=== PATIENT | female | born 1940 | race African-American/Black ===

== ENCOUNTER 2021-07-06 12:23 | Outpatient (CLI) | payer MEDICARE | END 2021-07-06 12:24 | disposition home or self-care (01) | LOC: CSHMAMMO 12:23 | PROVIDERS: ATTEND Internal Medicine | DX: Z12.31 Encounter for screening mammogram for malignant neoplasm of breast (principal); Z98.890 Other specified postprocedural states; Z85.3 Personal history of malignant neoplasm of breast | CPT/HCPCS: 77066; G0279 ==

== ENCOUNTER 2021-07-27 10:27 | Observation (INO) | payer MEDICARE ==
[2021-07-27 12:43] LABS: #Eosinphils 0.1 10x3/uL (0.0-0.5); #Monocytes 0.3 10x3/uL (0.0-1.1); #Neutrophils 2.2 10x3/uL (1.5-8.4); %Basophils 0.9 % (0.0-2.0); %Eosinophils 2.4 % (0.0-6.0); %Lymphocytes 22.4 % (18.0-47.0); %Monocytes 8.3 % (0.0-10.0); %Neutrophils 65.7 % (40.0-75.0); Hemoglobin 10.6 g/dL (12.0-15.5); Mean Corpuscular HGB CONC 33.4 g/dL (32.0-36.0); Mean Corpuscular Hemoglobin 30.2 pg (27.0-33.0); Mean Corpuscular Volume 90.3 fl (81.6-98.3); Mean Platelet Volume 10.4 fl (7.4-10.4); Platelet Count 171 10x3/uL (150-450); RBC Distribution Width 13.5 % (11.5-14.5); Red Blood Cell (RBC) Count 3.51 10x6/uL (3.90-5.03); White Blood Cell (WBC) Count 3.4 10x3/uL (3.5-10.5)
[2021-07-27 12:44] LABS: ALT (SGPT) Less than 6 U/L (8-55); AST (SGOT) 12 U/L (5-34); Albumin 3.8 g/dL (3.4-4.8); Alkaline Phosphatase 58 U/L (40-110); Anion Gap 11 mmol/L (10-20); BUN (Urea Nitrogen) 12 mg/dL (9.8-20.1); Bilirubin, Total 0.6 mg/dL (0.2-1.2); Calc. Creatinine Clearance 0 mL/min (70-130); Calcium 8.5 mg/dL (7.8-10.44); Carbon Dioxide 34 mmol/L (23-31); Chloride 98 mmol/L (98-107); Globulin 2.4 g/dL (2.4-3.5); Glucose 163 mg/dL (83-110); Lipase 35 U/L (8-78); Magnesium 1.8 mg/dL (1.6-2.6); Potassium 4.1 mmol/L (3.5-5.1); Protein, Total 6.2 g/dL (5.8-8.1); Sodium 139 mmol/L (136-145)
[2021-07-27 13:19] LABS: SARS-CoV-2 NAA Rapid Test Not Detected (NotDetected)
[2021-07-27] MEDS ORDERED: hydrALAZINE 25 MG TAB ONE (13:51)
[2021-07-27 15:07] LABS: Troponin I 0.014 ng/mL (< 0.028)
[2021-07-27] MEDS ORDERED: Acetaminophen 650 MG Suppository PR PRN (15:50)
[2021-07-27] MEDS ORDERED: Aspirin 325 mg Enteric Coated Tablet PO SCH (17:30)
[2021-07-27 18:04] LABS: Troponin I 0.016 ng/mL (< 0.028)
[2021-07-27] MEDS ORDERED: Dextrose 50% Abboject 50 ML SYRINGE SLOW IVP PRN (18:41)
[2021-07-27] MEDS ORDERED: Dextrose 5% in Water 1,000 ML IV PRN (18:41)
[2021-07-27] MEDS: Atorvastatin Calcium 20 MG TAB PO SCH (20:08)
[2021-07-27] MEDS: Acetaminophen 325 MG TAB PO PRN (20:09)
[2021-07-27] MEDS: HumaLOG 300 UNITS/3 ML VIAL SC PRN (21:57)
[2021-07-27] MEDS ORDERED: hydrALAZINE 25 MG TAB PO SCH (22:00)
[2021-07-28 01:52] VITALS: BMI 34.6
[2021-07-28] MEDS: Acetaminophen 325 MG TAB PO PRN (02:58)
[2021-07-28 05:09] LABS: #Basophils 0.1 10x3/uL (0.0-0.2); #Eosinphils 0.1 10x3/uL (0.0-0.5); #Monocytes 0.4 10x3/uL (0.0-1.1); #Neutrophils 2.6 10x3/uL (1.5-8.4); %Basophils 1.2 % (0.0-2.0); %Eosinophils 2.9 % (0.0-6.0); %Lymphocytes 22.2 % (18.0-47.0); %Neutrophils 63.5 % (40.0-75.0); Hemoglobin 9.7 g/dL (12.0-15.5); Mean Corpuscular HGB CONC 32.7 g/dL (32.0-36.0); Mean Corpuscular Hemoglobin 29.9 pg (27.0-33.0); Mean Corpuscular Volume 91.7 fl (81.6-98.3); Mean Platelet Volume 10.2 fl (7.4-10.4); Platelet Count 163 10x3/uL (150-450); RBC Distribution Width 13.4 % (11.5-14.5); Red Blood Cell (RBC) Count 3.24 10x6/uL (3.90-5.03); White Blood Cell (WBC) Count 4.1 10x3/uL (3.5-10.5)
[2021-07-28 05:38] LABS: Anion Gap 13 mmol/L (10-20); BUN (Urea Nitrogen) 21 mg/dL (9.8-20.1); Calc. Creatinine Clearance 20 mL/min (70-130); Calcium 8.3 mg/dL (7.8-10.44); Carbon Dioxide 31 mmol/L (23-31); Cardiac Risk 3.2 (Less than 4.5); Chloride 97 mmol/L (98-107); Cholesterol 125 mg/dl (< 200 Desired); Glucose 171 mg/dL (83-110); HDL Cholesterol 39 mg/dL (>60 Neg Risk); LDL Cholesterol, Calculated 61 mg/dL; Potassium 4.7 mmol/L (3.5-5.1); Sodium 136 mmol/L (136-145); Triglycerides 127 mg/dL (Less than 150)
[2021-07-28] MEDS: Allopurinol 100 MG TAB PO SCH (09:43)
[2021-07-28] MEDS: Ferrous Sulfate 325 MG TAB PO SCH (09:43)
[2021-07-28] MEDS: Montelukast Sodium 10 mg Tablet PO SCH (09:44)
[2021-07-28] MEDS: Aspirin Chewable 81 MG TAB PO SCH (09:44)
[2021-07-28] MEDS ORDERED: hydrALAZINE 25 MG TAB PO SCH (10:30)
[2021-07-28] MEDS ORDERED: Amlodipine 5 MG TAB PO SCH (10:30)
[2021-07-28] MEDS: HumaLOG 300 UNITS/3 ML VIAL SC PRN ×2 (17:52→21:49)
[2021-07-28] MEDS: hydrALAZINE 25 MG TAB PO SCH (21:47)
[2021-07-28] MEDS: Amlodipine 5 MG TAB PO SCH (21:48)
[2021-07-28] MEDS: Atorvastatin Calcium 20 MG TAB PO SCH (21:48)
[2021-07-29] MEDS ORDERED: hydrALAZINE 20 MG/ML VIAL SLOW IVP SCH (05:30)
[2021-07-29 05:31] LABS: #Eosinphils 0.1 10x3/uL (0.0-0.5); #Monocytes 0.4 10x3/uL (0.0-1.1); %Basophils 0.7 % (0.0-2.0); %Eosinophils 3.2 % (0.0-6.0); %Monocytes 8.6 % (0.0-10.0); %Neutrophils 68.3 % (40.0-75.0); Hemoglobin 9.9 g/dL (12.0-15.5); Mean Corpuscular HGB CONC 33.2 g/dL (32.0-36.0); Mean Corpuscular Hemoglobin 30.4 pg (27.0-33.0); Mean Corpuscular Volume 91.4 fl (81.6-98.3); Mean Platelet Volume 9.8 fl (7.4-10.4); Platelet Count 147 10x3/uL (150-450); RBC Distribution Width 13.4 % (11.5-14.5); Red Blood Cell (RBC) Count 3.26 10x6/uL (3.90-5.03); White Blood Cell (WBC) Count 4.4 10x3/uL (3.5-10.5)
[2021-07-29 05:48] LABS: Anion Gap 14 mmol/L (10-20); BUN (Urea Nitrogen) 39 mg/dL (9.8-20.1); Calc. Creatinine Clearance 16 mL/min (70-130); Calcium 8.4 mg/dL (7.8-10.44); Carbon Dioxide 28 mmol/L (23-31); Chloride 98 mmol/L (98-107); Glucose 204 mg/dL (83-110); Potassium 5.2 mmol/L (3.5-5.1); Sodium 135 mmol/L (136-145)
[2021-07-29] MEDS: HumaLOG 300 UNITS/3 ML VIAL SC PRN ×2 (05:54→12:55)
[2021-07-29] MEDS: Allopurinol 100 MG TAB PO SCH (08:18)
[2021-07-29] MEDS: Ferrous Sulfate 325 MG TAB PO SCH (08:19)
[2021-07-29] MEDS: Montelukast Sodium 10 mg Tablet PO SCH (08:19)
[2021-07-29] MEDS: Amlodipine 5 MG TAB PO SCH (08:19)
[2021-07-29] MEDS: Aspirin Chewable 81 MG TAB PO SCH (08:19)
[2021-07-29] MEDS: hydrALAZINE 25 MG TAB PO SCH (08:20)
[2021-07-29 10:05] LABS: Anion Gap 13 mmol/L (10-20); BUN (Urea Nitrogen) 38 mg/dL (9.8-20.1); Calc. Creatinine Clearance 15 mL/min (70-130); Calcium 8.5 mg/dL (7.8-10.44); Carbon Dioxide 31 mmol/L (23-31); Chloride 96 mmol/L (98-107); Glucose 241 mg/dL (83-110); Potassium 5.1 mmol/L (3.5-5.1); Sodium 135 mmol/L (136-145)
[2021-07-29] MEDS ORDERED: EPOETIN ALFA-EPBX (ESRD) 10,000 UNIT/ML VIAL IVP SCH (12:45)
[2021-07-29] MEDS ORDERED: Acetaminophen/Codeine 30-300mg Tablet PO PRN (12:46)
[2021-07-29 13:04] VITALS: BP 175/71; TEMP 98.9
[2021-07-29] MEDS ORDERED: Heparin 10,000 UNITS/ 10 ML VIAL SLOW IVP PRN (14:23)
[2021-07-29] MEDS ORDERED: Fluticasone Propionate Nasal Spray 16 gm Bottle NASAL SCH (21:00)
[2021-07-29] MEDS ORDERED: Terazosin HCl 1 MG CAP PO SCH (21:00)
[2021-07-29] MEDS ORDERED: hydrALAZINE 25 MG TAB PO SCH (21:00)
[2021-07-30] MEDS ORDERED: Atorvastatin Calcium 20 MG TAB PO SCH (09:00)
[2021-07-30] MEDS ORDERED: Loratadine 10 MG TAB PO SCH (09:00)
== END 2021-07-29 18:11 | disposition home or self-care (01) ==
LOC: CSHERS 10:27 → CSHTELE 15:35
PROVIDERS: ADMIT Family Medicine; ATTEND Family Medicine
DX: R07.9 Chest pain, unspecified (principal); R20.0 Anesthesia of skin; E11.22 Type 2 diabetes mellitus with diabetic chronic kidney disease; I12.0 Hypertensive chronic kidney disease with stage 5 chronic kidney disease or end stage renal disease; N18.6 End stage renal disease; E78.5 Hyperlipidemia, unspecified; Z79.899 Other long term (current) drug therapy; Z20.822 Contact with and (suspected) exposure to COVID-19; I25.10 Atherosclerotic heart disease of native coronary artery without angina pectoris; Z95.5 Presence of coronary angioplasty implant and graft; I73.9 Peripheral vascular disease, unspecified; J44.9 Chronic obstructive pulmonary disease, unspecified; D63.1 Anemia in chronic kidney disease; E66.01 Morbid (severe) obesity due to excess calories; M10.9 Gout, unspecified; Z87.891 Personal history of nicotine dependence
CPT/HCPCS: 70450; 70551; 71045; 80048 ×3; 80053; 80061; 82962 ×3; 83690; 83735; 84484 ×2; 85025 ×3; 93005; 93306; 94760; G0378 ×4; Q5105; U0002; 36415; 36416; 90935; G0257; J1644; J1815

== ENCOUNTER 2021-10-07 11:11 | Outpatient (CLI) | payer MEDICARE ==
[2021-10-07 22:16] LABS: SARS-CoV-2 PCR by NAA Not Detected (NotDetected)
== END 2021-10-07 11:12 | disposition home or self-care (01) ==
LOC: CSHLAB 11:11
PROVIDERS: ATTEND Specialist
DX: Z01.818 Encounter for other preprocedural examination (principal); Z20.822 Contact with and (suspected) exposure to COVID-19
CPT/HCPCS: 93005; 93010; U0003; U0005

== ENCOUNTER 2022-01-22 11:29 | Inpatient (IN) | payer MEDICARE ==
[2022-01-22] MEDS ORDERED: Magnesium 2 GM/50 ML BAG (IN WATER) ONE (12:15)
[2022-01-22] MEDS ORDERED: Albuterol Sulfate 2.5 mg/3 ml Neb ONE (12:15)
[2022-01-22] MEDS ORDERED: Aspirin Chewable 81 MG TAB ONE (12:15)
[2022-01-22 12:39] LABS: #Eosinphils 0.1 10x3/uL (0.0-0.5); #Monocytes 0.2 10x3/uL (0.0-1.1); #Neutrophils 3.9 10x3/uL (1.5-8.4); %Basophils 0.6 % (0.0-2.0); %Eosinophils 1.2 % (0.0-6.0); %Lymphocytes 13.7 % (18.0-47.0); %Monocytes 4.9 % (0.0-10.0); %Neutrophils 79.2 % (40.0-75.0); Mean Corpuscular HGB CONC 33.4 g/dL (32.0-36.0); Mean Corpuscular Hemoglobin 30.7 pg (27.0-33.0); Mean Corpuscular Volume 91.7 fl (81.6-98.3); Mean Platelet Volume 9.9 fl (7.4-10.4); Platelet Count 146 10x3/uL (150-450); RBC Distribution Width 13.8 % (11.5-14.5); Red Blood Cell (RBC) Count 3.26 10x6/uL (3.90-5.03); White Blood Cell (WBC) Count 4.9 10x3/uL (3.5-10.5)
[2022-01-22 13:00] LABS: ALT (SGPT) 7 U/L (8-55); AST (SGOT) 11 U/L (5-34); Albumin 3.8 g/dL (3.4-4.8); Alkaline Phosphatase 58 U/L (40-110); Anion Gap 15 mmol/L (10-20); BUN (Urea Nitrogen) 40 mg/dL (9.8-20.1); Bilirubin, Total 0.6 mg/dL (0.2-1.2); CK (CPK) 82 U/L (29-168); Calc. Creatinine Clearance 0 mL/min (70-130); Calcium 9.1 mg/dL (7.8-10.44); Carbon Dioxide 27 mmol/L (23-31); Chloride 100 mmol/L (98-107); Estimated GFR 8; Globulin 2.6 g/dL (2.4-3.5); Glucose 146 mg/dL (83-110); Potassium 4.6 mmol/L (3.5-5.1); Protein, Total 6.4 g/dL (5.8-8.1); Sodium 137 mmol/L (136-145)
[2022-01-22] MEDS ORDERED: Furosemide 100 MG/10 ML VIAL ONE (14:23)
[2022-01-22] MEDS ORDERED: Nitroglycerin 0.4 MG TAB 1 EACH ONE ×3 (15:05→17:13)
[2022-01-22] MEDS ORDERED: HYDROcodone/Acetaminophen 5/325 mg Tablet PO PRN (15:55)
[2022-01-22] MEDS ORDERED: Ondansetron ODT 4 MG TAB PO PRN (15:55)
[2022-01-22] MEDS ORDERED: Ondansetron PF 4 MG/2 ML Vial IVP PRN (15:55)
[2022-01-22] MEDS ORDERED: Senokot S 8.6-50 MG TAB PO PRN (15:55)
[2022-01-22] MEDS ORDERED: Bisacodyl 5 MG TAB PO PRN (15:55)
[2022-01-22] MEDS ORDERED: Dextrose 50% Abboject 50 ML SYRINGE SLOW IVP PRN (16:00)
[2022-01-22] MEDS ORDERED: HumaLOG 300 UNITS/3 ML VIAL SC PRN (16:00)
[2022-01-22] MEDS ORDERED: Dextrose 5% in Water 1,000 ML IV PRN (16:00)
[2022-01-22 16:45] LABS: Troponin I 0.017 ng/mL (< 0.028)
[2022-01-22] MEDS ORDERED: Acetaminophen 325 MG TAB ONE (16:58)
[2022-01-22] MEDS ORDERED: Nitroglycerin 2% Ointment 1 INCH/1 GM Packet ONE (16:58)
[2022-01-22] MEDS: Acetaminophen 325 MG TAB PO PRN (17:15)
[2022-01-22] MEDS ORDERED: methylPREDNISolone Sod Succ 40 MG VIAL ONE (18:13)
[2022-01-22 18:44] LABS: SARS-CoV-2 NAA Rapid Test Not Detected (NotDetected)
[2022-01-22 19:02] LABS: Troponin I 0.017 ng/mL (< 0.028)
[2022-01-22 21:09] VITALS: BMI 28.1
[2022-01-22] MEDS: HumaLOG 300 UNITS/3 ML VIAL SC PRN (22:33)
[2022-01-23] MEDS: methylPREDNISolone Sod Succ 40 MG VIAL IVP SCH ×5 (00:07→17:14)
[2022-01-23] MEDS ORDERED: hydrALAZINE 20 MG/ML VIAL SLOW IVP PRN ×2 (00:24→09:12)
[2022-01-23] MEDS: Acetaminophen 325 MG TAB PO PRN (00:30)
[2022-01-23] MEDS ORDERED: hydrALAZINE 25 MG TAB PO SCH (00:30)
[2022-01-23 04:44] LABS: #Monocytes 0.1 10x3/uL (0.0-1.1); #Neutrophils 4.9 10x3/uL (1.5-8.4); %Lymphocytes 4.7 % (18.0-47.0); %Monocytes 1.7 % (0.0-10.0); %Neutrophils 93.2 % (40.0-75.0); Hemoglobin 9.9 g/dL (12.0-15.5); Mean Corpuscular Hemoglobin 30.4 pg (27.0-33.0); Mean Corpuscular Volume 89.3 fl (81.6-98.3); Mean Platelet Volume 10.3 fl (7.4-10.4); Platelet Count 133 10x3/uL (150-450); RBC Distribution Width 13.6 % (11.5-14.5); Red Blood Cell (RBC) Count 3.26 10x6/uL (3.90-5.03); White Blood Cell (WBC) Count 5.3 10x3/uL (3.5-10.5)
[2022-01-23 05:11] LABS: ALT (SGPT) 8 U/L (8-55); AST (SGOT) 9 U/L (5-34); Albumin 3.8 g/dL (3.4-4.8); Alkaline Phosphatase 61 U/L (40-110); Anion Gap 18 mmol/L (10-20); BUN (Urea Nitrogen) 51 mg/dL (9.8-20.1); Bilirubin, Total 0.5 mg/dL (0.2-1.2); Calc. Creatinine Clearance 10 mL/min (70-130); Carbon Dioxide 23 mmol/L (23-31); Chloride 98 mmol/L (98-107); Estimated GFR 7; Globulin 2.7 g/dL (2.4-3.5); Glucose 280 mg/dL (83-110); Potassium 4.8 mmol/L (3.5-5.1); Protein, Total 6.5 g/dL (5.8-8.1); Sodium 134 mmol/L (136-145)
[2022-01-23] MEDS ORDERED: Furosemide 40 MG/4 ML VIAL SLOW IVP SCH (06:00)
[2022-01-23] MEDS: HumaLOG 300 UNITS/3 ML VIAL SC PRN ×2 (06:53→12:03)
[2022-01-23] MEDS ORDERED: Amlodipine 10 MG TAB PO SCH (09:00)
[2022-01-23] MEDS: Cholecalciferol 1,000 UNITS (25 MCG) TAB PO SCH (09:18)
[2022-01-23] MEDS: Atorvastatin Calcium 40 MG TAB PO SCH (09:18)
[2022-01-23] MEDS: Allopurinol 100 MG TAB PO SCH (09:18)
[2022-01-23] MEDS: Loratadine 10 MG TAB PO SCH (09:18)
[2022-01-23] MEDS: Multivitamin W/ Minerals 1 TAB PO SCH (09:19)
[2022-01-23] MEDS: hydrALAZINE 25 MG TAB PO SCH ×2 (09:19→20:42)
[2022-01-23] MEDS: Fluticasone Propionate Nasal Spray 16 gm Bottle NASAL SCH (09:19)
[2022-01-23] MEDS ORDERED: Heparin 10,000 UNITS/ 10 ML VIAL FS SCH (11:30)
[2022-01-23] MEDS: Losartan 25 MG TAB PO SCH (17:36)
[2022-01-23] MEDS: Terazosin HCl 1 MG CAP PO SCH (20:41)
[2022-01-23] MEDS: Montelukast Sodium 10 mg Tablet PO SCH (20:43)
[2022-01-23] MEDS: HumuLIN 70/30 (300 UNITS/3 ML VIAL) SC SCH (20:44)
[2022-01-24] MEDS: methylPREDNISolone Sod Succ 40 MG VIAL IVP SCH ×2 (00:15→05:35)
[2022-01-24] MEDS ORDERED: hydrALAZINE 25 MG TAB PO SCH (05:30)
[2022-01-24] MEDS ORDERED: Amlodipine 10 MG TAB PO SCH (05:30)
[2022-01-24] MEDS: HumaLOG 300 UNITS/3 ML VIAL SC PRN ×4 (05:35→21:20)
[2022-01-24] MEDS: Fluticasone Propionate Nasal Spray 16 gm Bottle NASAL SCH ×3 (08:47→21:17)
[2022-01-24] MEDS: Allopurinol 100 MG TAB PO SCH (08:48)
[2022-01-24] MEDS: HumuLIN 70/30 (300 UNITS/3 ML VIAL) SC SCH ×2 (08:48→21:19)
[2022-01-24] MEDS: predniSONE 20 MG TAB PO SCH (08:48)
[2022-01-24] MEDS: Losartan 25 MG TAB PO SCH (08:48)
[2022-01-24] MEDS: Multivitamin W/ Minerals 1 TAB PO SCH (08:48)
[2022-01-24] MEDS: Cholecalciferol 1,000 UNITS (25 MCG) TAB PO SCH (08:48)
[2022-01-24] MEDS: Loratadine 10 MG TAB PO SCH (08:48)
[2022-01-24] MEDS: Atorvastatin Calcium 40 MG TAB PO SCH (08:48)
[2022-01-24] MEDS ORDERED: Losartan Potassium 50 MG TAB PO SCH (18:00)
[2022-01-24] MEDS: Terazosin HCl 1 MG CAP PO SCH (21:18)
[2022-01-24] MEDS: hydrALAZINE 25 MG TAB PO SCH (21:18)
[2022-01-24] MEDS: Montelukast Sodium 10 mg Tablet PO SCH (21:20)
[2022-01-25 05:00] LABS: Anion Gap 20 mmol/L (10-20); BUN (Urea Nitrogen) 71 mg/dL (9.8-20.1); Calc. Creatinine Clearance 11 mL/min (70-130); Calcium 8.6 mg/dL (7.8-10.44); Carbon Dioxide 21 mmol/L (23-31); Chloride 97 mmol/L (98-107); Estimated GFR 8; Glucose 125 mg/dL (83-110); Sodium 133 mmol/L (136-145)
[2022-01-25 05:01] LABS: Potassium 5.1 mmol/L (3.5-5.1)
[2022-01-25 06:40] VITALS: TEMP 98.3
[2022-01-25] MEDS: Fluticasone Propionate Nasal Spray 16 gm Bottle NASAL SCH (08:23)
[2022-01-25] MEDS: HumuLIN 70/30 (300 UNITS/3 ML VIAL) SC SCH (08:23)
[2022-01-25] MEDS: Cholecalciferol 1,000 UNITS (25 MCG) TAB PO SCH (08:24)
[2022-01-25] MEDS: Allopurinol 100 MG TAB PO SCH (08:24)
[2022-01-25] MEDS: hydrALAZINE 25 MG TAB PO SCH ×2 (08:24→08:28)
[2022-01-25] MEDS: predniSONE 20 MG TAB PO SCH (08:24)
[2022-01-25] MEDS: Multivitamin W/ Minerals 1 TAB PO SCH (08:24)
[2022-01-25] MEDS: Atorvastatin Calcium 40 MG TAB PO SCH (08:25)
[2022-01-25] MEDS: Loratadine 10 MG TAB PO SCH (08:25)
[2022-01-25 08:40] VITALS: BP 151/69
[2022-01-25] MEDS ORDERED: Amlodipine 10 MG TAB PO SCH (09:00)
== END 2022-01-25 14:55 | disposition home or self-care (01) | DRG 202 ==
LOC: CSHERS 11:29 → CSHERHOLD 16:06 → CSHTELE 18:30 → OBSVTOIN 01-24 10:06
PROVIDERS: ADMIT Emergency Medicine Emergency Medical Services; ATTEND Internal Medicine
PROC: 5A1D70Z Performance of Urinary Filtration, Intermittent, Less than 6 Hours Per Day (ICD-10-PCS; principal; 2022-01-25)
DX: J45.901 Unspecified asthma with (acute) exacerbation (principal); N18.6 End stage renal disease; I50.33 Acute on chronic diastolic (congestive) heart failure; I13.2 Hypertensive heart and chronic kidney disease with heart failure and with stage 5 chronic kidney disease, or end stage renal disease; E87.1 Hypo-osmolality and hyponatremia; D63.1 Anemia in chronic kidney disease; E11.22 Type 2 diabetes mellitus with diabetic chronic kidney disease; I48.0 Paroxysmal atrial fibrillation; K21.9 Gastro-esophageal reflux disease without esophagitis; I65.23 Occlusion and stenosis of bilateral carotid arteries; I25.118 Atherosclerotic heart disease of native coronary artery with other forms of angina pectoris; E78.2 Mixed hyperlipidemia; E11.51 Type 2 diabetes mellitus with diabetic peripheral angiopathy without gangrene; I70.213 Atherosclerosis of native arteries of extremities with intermittent claudication, bilateral legs; J44.9 Chronic obstructive pulmonary disease, unspecified; Z20.822 Contact with and (suspected) exposure to COVID-19; Z95.5 Presence of coronary angioplasty implant and graft; Z88.2 Allergy status to sulfonamides; Z90.710 Acquired absence of both cervix and uterus; Z99.2 Dependence on renal dialysis; Z88.0 Allergy status to penicillin; Z79.899 Other long term (current) drug therapy; Z79.4 Long term (current) use of insulin
CPT/HCPCS: 36415; 36416; 71045; 80048; 80053; 82550; 83880; 84484; 85025; 90935; 93005; 93010; 93306; 94640; 94760; 96375; 96376; G0257; G0378; J0360; J1644; J1815; J1940; J2920; J3475; J7512; J7611; J7620; U0002

== ENCOUNTER 2022-06-23 16:35 | Inpatient (IN) | payer MEDICARE ==
[~2022-06-23 16:35] MED LIST: Iopamidol 370 76% 100 ML VIAL ONE
[2022-06-23 17:26] LABS: #Eosinphils 0.1 10x3/uL (0.0-0.5); #Monocytes 0.4 10x3/uL (0.0-1.1); #Neutrophils 4.3 10x3/uL (1.5-8.4); %Basophils 0.6 % (0.0-2.0); %Eosinophils 1.3 % (0.0-6.0); %Lymphocytes 8.1 % (18.0-47.0); %Monocytes 7.9 % (0.0-10.0); %Neutrophils 81.5 % (40.0-75.0); Hemoglobin 11.4 g/dL (12.0-15.5); Mean Corpuscular Hemoglobin 29.6 pg (27.0-33.0); Mean Corpuscular Volume 89.6 fl (81.6-98.3); Mean Platelet Volume 10.1 fl (7.4-10.4); Platelet Count 179 10x3/uL (150-450); RBC Distribution Width 13.8 % (11.5-14.5); Red Blood Cell (RBC) Count 3.85 10x6/uL (3.90-5.03); White Blood Cell (WBC) Count 5.3 10x3/uL (3.5-10.5)
[2022-06-23 17:41] LABS: ALT (SGPT) Less than 6 U/L (8-55); Albumin 3.8 g/dL (3.4-4.8); Alkaline Phosphatase 59 U/L (40-110); Anion Gap 16 mmol/L (10-20); BUN (Urea Nitrogen) 21 mg/dL (9.8-20.1); Bilirubin, Total 0.4 mg/dL (0.2-1.2); CK (CPK) 78 U/L (29-168); Calc. Creatinine Clearance 0 mL/min (70-130); Calcium 8.8 mg/dL (7.8-10.44); Carbon Dioxide 30 mmol/L (23-31); Chloride 97 mmol/L (98-107); Estimated GFR 14; Globulin 2.7 g/dL (2.4-3.5); Glucose 175 mg/dL (83-110); Lipase 329 U/L (8-78); Potassium 4.9 mmol/L (3.5-5.1); Protein, Total 6.5 g/dL (5.8-8.1); Sodium 138 mmol/L (136-145)
[2022-06-23 17:42] LABS: AST (SGOT) 20 U/L (5-34)
[2022-06-23 17:58] LABS: CKMB 1.2 ng/mL (0-6.6)
[2022-06-23 18:07] LABS: SARS-CoV-2 NAA Rapid Test Not Detected (NotDetected)
[2022-06-23] MEDS ORDERED: Aspirin 325 MG TAB ONE (18:46)
[2022-06-23] MEDS ORDERED: Aspirin Chewable 81 MG TAB ONE (18:50)
[2022-06-23] MEDS ORDERED: hydrALAZINE 20 MG/ML VIAL ONE (19:23)
[2022-06-23] MEDS ORDERED: Furosemide 40 MG/4 ML VIAL ONE (19:24)
[2022-06-23] MEDS ORDERED: Zolpidem Tartrate 5 MG TAB PO PRN (20:16)
[2022-06-23] MEDS ORDERED: Promethazine HCl 25 MG/ML VIAL IM PRN (20:16)
[2022-06-23] MEDS ORDERED: HYDROcodone/Acetaminophen 5/325 mg Tablet PO PRN (20:16)
[2022-06-23] MEDS ORDERED: HumaLOG 300 UNITS/3 ML VIAL SC PRN (20:16)
[2022-06-23] MEDS ORDERED: Dextrose 5% in Water 1,000 ML IV PRN (20:16)
[2022-06-23] MEDS ORDERED: Ondansetron PF 4 MG/2 ML Vial IVP PRN (20:16)
[2022-06-23] MEDS ORDERED: Dextrose 50% Abboject 50 ML SYRINGE SLOW IVP PRN (20:16)
[2022-06-23] MEDS ORDERED: hydrALAZINE 20 MG/ML VIAL SLOW IVP PRN (20:20)
[2022-06-23] MEDS ORDERED: GUAIFENESIN SF SOLN 200 MG/10 ML UDCUP PO PRN (20:20)
[2022-06-23] MEDS ORDERED: Morphine 2 MG/ML VIAL SLOW IVP PRN (20:20)
[2022-06-23] MEDS ORDERED: Furosemide 100 MG/10 ML VIAL SLOW IVP SCH (20:30)
[2022-06-23 21:13] VITALS: BMI 34.7
[2022-06-23] MEDS: Terazosin HCl 1 MG CAP PO SCH (21:57)
[2022-06-23] MEDS: Montelukast Sodium 10 mg Tablet PO SCH (21:58)
[2022-06-23] MEDS: Atorvastatin Calcium 40 MG TAB PO SCH (21:58)
[2022-06-23] MEDS: hydrALAZINE 25 MG TAB PO SCH (21:58)
[2022-06-23] MEDS: cefTRIAXone\\ROCEPHIN 1 GM in Sodium Chloride 0.9% 100 ML IVPB SCH (21:59)
[2022-06-24 00:22] LABS: Bilirubin Neg (Negative); Blood, Urine 10 (Negative); Clarity Slightly Cloudy (Clear); Glucose, Urine (Dipstick) Normal (Negative); Ketone, Urine Negative (Negative); Leukocyte 25 (Negative); Nitrite Negative (Negative); Protein, Urine (Dipstick) 500 mg/dl (Neg-Trace); Specific Gravity, Urine 1.005 (1.005-1.030); Urobilinogen Normal mg/dL (Less than 2)
[2022-06-24 00:42] LABS: Bacteria/HPF None Seen HPF (None Seen); RBC/HPF 0-3 HPF (0-3); Squamous Epithelial 0-3 HPF (0-3); Transitional Epithelial 0-3 HPF (None Seen)
[2022-06-24 04:29] LABS: #Eosinphils 0.1 10x3/uL (0.0-0.5); #Monocytes 0.4 10x3/uL (0.0-1.1); #Neutrophils 3.2 10x3/uL (1.5-8.4); %Basophils 0.5 % (0.0-2.0); %Eosinophils 2.5 % (0.0-6.0); %Lymphocytes 14.7 % (18.0-47.0); %Monocytes 9.2 % (0.0-10.0); %Neutrophils 72.9 % (40.0-75.0); Hemoglobin 10.9 g/dL (12.0-15.5); Mean Corpuscular HGB CONC 32.9 g/dL (32.0-36.0); Mean Corpuscular Hemoglobin 29.6 pg (27.0-33.0); Mean Corpuscular Volume 89.9 fl (81.6-98.3); Mean Platelet Volume 9.6 fl (7.4-10.4); Platelet Count 160 10x3/uL (150-450); RBC Distribution Width 13.8 % (11.5-14.5); Red Blood Cell (RBC) Count 3.68 10x6/uL (3.90-5.03); White Blood Cell (WBC) Count 4.4 10x3/uL (3.5-10.5)
[2022-06-24 04:39] LABS: ALT (SGPT) Less than 6 U/L (8-55); AST (SGOT) 11 U/L (5-34); Albumin 3.4 g/dL (3.4-4.8); Alkaline Phosphatase 54 U/L (40-110); Anion Gap 16 mmol/L (10-20); BUN (Urea Nitrogen) 26 mg/dL (9.8-20.1); Bilirubin, Total 0.4 mg/dL (0.2-1.2); Calc. Creatinine Clearance 19 mL/min (70-130); Calcium 8.6 mg/dL (7.8-10.44); Carbon Dioxide 29 mmol/L (23-31); Chloride 97 mmol/L (98-107); Estimated GFR 11; Globulin 2.4 g/dL (2.4-3.5); Glucose 152 mg/dL (83-110); Lipase 138 U/L (8-78); Potassium 4.5 mmol/L (3.5-5.1); Protein, Total 5.8 g/dL (5.8-8.1); Sodium 137 mmol/L (136-145)
[2022-06-24] MEDS: hydrALAZINE 25 MG TAB PO SCH ×2 (08:27→20:59)
[2022-06-24] MEDS: Furosemide 40 MG TAB PO SCH ×2 (08:28→14:11)
[2022-06-24] MEDS: Enoxaparin Sodium 30 MG/0.3 ML SYRINGE SC SCH (08:28)
[2022-06-24] MEDS ORDERED: FLU VACC QS2022-23(65YR UP)/PF 240 MCG/0.7 ML SYRINGE IM ONE (09:00)
[2022-06-24] MEDS ORDERED: Fluticasone Propionate Nasal Spray 16 gm Bottle NASAL SCH (09:00)
[2022-06-24] MEDS: Amlodipine 10 MG TAB PO SCH (09:03)
[2022-06-24] MEDS: HumaLOG 300 UNITS/3 ML VIAL SC PRN (14:09)
[2022-06-24] MEDS ORDERED: Losartan Potassium 50 MG TAB PO SCH (18:00)
[2022-06-24] MEDS: cefTRIAXone\\ROCEPHIN 1 GM in Sodium Chloride 0.9% 100 ML IVPB SCH (20:56)
[2022-06-24] MEDS: Terazosin HCl 1 MG CAP PO SCH (20:59)
[2022-06-24] MEDS: Atorvastatin Calcium 40 MG TAB PO SCH (21:00)
[2022-06-24] MEDS: Montelukast Sodium 10 mg Tablet PO SCH (21:00)
[2022-06-25 04:27] VITALS: TEMP 98.2
[2022-06-25] MEDS: HumaLOG 300 UNITS/3 ML VIAL SC PRN (05:56)
[2022-06-25] MEDS: hydrALAZINE 25 MG TAB PO SCH (09:14)
[2022-06-25] MEDS: Amlodipine 10 MG TAB PO SCH (09:14)
[2022-06-25] MEDS: Furosemide 40 MG TAB PO SCH (09:15)
[2022-06-25] MEDS: Enoxaparin Sodium 30 MG/0.3 ML SYRINGE SC SCH (09:17)
[2022-06-25 09:18] VITALS: BP 166/72
== END 2022-06-25 10:15 | disposition home or self-care (01) | DRG 438 ==
LOC: CSHERS 16:35 → CSHTELE 20:36 → OBSVTOIN 06-24 17:31
PROVIDERS: ADMIT Emergency Medicine; ATTEND Internal Medicine
DX: K85.90 Acute pancreatitis without necrosis or infection, unspecified (principal); N18.6 End stage renal disease; I13.2 Hypertensive heart and chronic kidney disease with heart failure and with stage 5 chronic kidney disease, or end stage renal disease; I50.32 Chronic diastolic (congestive) heart failure; N28.1 Cyst of kidney, acquired; I25.10 Atherosclerotic heart disease of native coronary artery without angina pectoris; D63.1 Anemia in chronic kidney disease; E11.51 Type 2 diabetes mellitus with diabetic peripheral angiopathy without gangrene; I16.0 Hypertensive urgency; N28.89 Other specified disorders of kidney and ureter; E78.5 Hyperlipidemia, unspecified; Z20.822 Contact with and (suspected) exposure to COVID-19; Z95.5 Presence of coronary angioplasty implant and graft; Z99.2 Dependence on renal dialysis; Z88.0 Allergy status to penicillin; Z95.828 Presence of other vascular implants and grafts; Z90.710 Acquired absence of both cervix and uterus; Z88.2 Allergy status to sulfonamides; Z79.899 Other long term (current) drug therapy; Z79.4 Long term (current) use of insulin; K21.9 Gastro-esophageal reflux disease without esophagitis
CPT/HCPCS: 36415; 36416; 71045; 71275; 74150; 76705; 80053; 81001; 82150; 82550; 82553; 83605; 83690; 84484; 85025; 93005; 94760; 96372; 96374; 96375; G0378; J0360; J0696; J1650; J1815; J1940; J2270; J2405; J3490; Q9967

== ENCOUNTER 2022-07-11 09:31 | Outpatient (CLI) | payer MEDICARE | END 2022-07-11 09:32 | disposition home or self-care (01) | LOC: CSHMAMMO 09:31 | PROVIDERS: ATTEND Internal Medicine | DX: Z08 Encounter for follow-up examination after completed treatment for malignant neoplasm (principal); Z85.3 Personal history of malignant neoplasm of breast | CPT/HCPCS: 77066; G0279 ==

== ENCOUNTER 2022-07-14 07:51 | Outpatient (CLI) | payer MEDICARE ==
[2022-07-14] MEDS ORDERED: Iopamidol 300 61% 100 ML VIAL FS ONE (14:55)
== END 2022-07-14 07:52 | disposition home or self-care (01) ==
LOC: CSHCT 07:51
PROVIDERS: ATTEND Internal Medicine
DX: N28.9 Disorder of kidney and ureter, unspecified (principal); N28.1 Cyst of kidney, acquired
CPT/HCPCS: 74170; Q9967

== ENCOUNTER 2024-01-22 10:14 | Outpatient (CLI) | payer MEDICARE | END 2024-01-22 10:15 | disposition home or self-care (01) | LOC: CSHULT 10:14 | PROVIDERS: ATTEND Urology | DX: N28.1 Cyst of kidney, acquired (principal); N18.6 End stage renal disease; Z99.2 Dependence on renal dialysis | CPT/HCPCS: 76770 ==

== ENCOUNTER 2024-04-18 19:19 | Emergency (ER) | payer MEDICARE ==
[2024-04-18 20:08] LABS: #Basophils 0.03 10x3/uL (0.0-0.2); #Eosinophils 0.16 10x3/uL (0.0-0.5); #Monocytes 0.44 10x3/uL (0.0-1.1); %Basophils 0.6 % (0.0-2.0); %Eosinophils 3.3 % (0.0-6.0); %Lymphocytes 12.6 % (18.0-47.0); %Monocytes 9.1 % (0.0-10.0); Hematocrit 23.3 % (34.9-44.5); Hemoglobin 7.4 g/dL (12.0-15.5); Mean Corpuscular HGB CONC 31.8 g/dL (32.0-36.0); Mean Corpuscular Hemoglobin 29.6 pg (27.0-33.0); Mean Corpuscular Volume 93.2 fL (81.6-98.3); Platelet Count 209 10x3/uL (150-450); RBC Distribution Width 15.4 % (11.5-14.5); White Blood Cell (WBC) Count 4.9 10x3/uL (3.5-10.5)
[2024-04-18 20:26] LABS: ALT (SGPT) 7 U/L (8-55); AST (SGOT) 16 U/L (5-34); Albumin 3.5 g/dL (3.4-4.8); Alkaline Phosphatase 44 U/L (40-110); Anion Gap 16 mmol/L (10-20); BUN (Urea Nitrogen) 24 mg/dL (9.8-20.1); Bilirubin, Total 0.3 mg/dL (0.2-1.2); Calc. Creatinine Clearance 0 mL/min (70-130); Calcium 9.2 mg/dL (7.8-10.44); Carbon Dioxide 29 mmol/L (23-31); Chloride 97 mmol/L (98-107); Estimated GFR 10; Globulin 2.6 g/dL (2.4-3.5); Glucose 196 mg/dL (83-110); Protein, Total 6.1 g/dL (5.8-8.1); Sodium 138 mmol/L (136-145)
[2024-04-18 20:32] LABS: Troponin I 0.024 ng/mL (< 0.028)
[2024-04-18] MEDS ORDERED: Pantoprazole 40 MG VIAL ONE (20:41)
[2024-04-18] MEDS ORDERED: Ipratropium/Albuterol 3 ML NEB ONE (20:44)
== END 2024-04-18 22:41 | disposition short-term general hospital (02) ==
LOC: CSHERS 19:19
DX: D64.9 Anemia, unspecified (principal); I13.2 Hypertensive heart and chronic kidney disease with heart failure and with stage 5 chronic kidney disease, or end stage renal disease; E11.22 Type 2 diabetes mellitus with diabetic chronic kidney disease; N18.6 End stage renal disease; E78.00 Pure hypercholesterolemia, unspecified; J44.89 Other specified chronic obstructive pulmonary disease; K21.9 Gastro-esophageal reflux disease without esophagitis; Z79.4 Long term (current) use of insulin; Z99.2 Dependence on renal dialysis; Z55.6 Problems related to health literacy; Z79.899 Other long term (current) drug therapy
CPT/HCPCS: 71045; 80053; 84484; 85025; 86850; 86900; 86901; 93005; 94640; 94760; J2470; 82274; 96374; J7620

== ENCOUNTER 2025-01-29 08:06 | Outpatient (CLI) | payer MEDICARE | END 2025-01-29 08:07 | disposition home or self-care (01) | LOC: CSHULT 08:06 | PROVIDERS: ATTEND Urology | DX: N28.1 Cyst of kidney, acquired (principal); R31.9 Hematuria, unspecified | CPT/HCPCS: 76770 ==

== ENCOUNTER 2025-04-24 11:46 | Outpatient (CLI) | payer MEDICARE | END 2025-04-24 11:47 | disposition home or self-care (01) | LOC: CSHRAD 11:46 | PROVIDERS: ATTEND Internal Medicine Nephrology | DX: Z11.1 Encounter for screening for respiratory tuberculosis (principal); J90 Pleural effusion, not elsewhere classified; J98.11 Atelectasis | CPT/HCPCS: 71046 ==